=== PATIENT | female | born 1990 | race Two or more races ===

== ENCOUNTER 2022-07-25 14:33 | Emergency (ER) | payer OTHER ==
[~2022-07-25] VITALS: Ht 167.6 cm; Wt 70.3 kg
== END 2022-07-25 15:49 | disposition home or self-care (01) ==
LOC: ER 14:33
DX: S90.121A Contusion of right lesser toe(s) without damage to nail, initial encounter (principal); X58.XXXA Exposure to other specified factors, initial encounter; Y99.9 Unspecified external cause status; Z91.040 Latex allergy status

== ENCOUNTER 2023-03-04 09:09 | Emergency (ER) | payer OTHER ==
[~2023-03-04] VITALS: Ht 167.6 cm; Wt 70.8 kg
[2023-03-04] MEDS ORDERED: SOOLANTRA45 GM TP (09:40)
== END 2023-03-04 10:49 | disposition home or self-care (01) ==
LOC: ER 09:09
DX: H02.843 Edema of right eye, unspecified eyelid (principal); Z91.040 Latex allergy status

== ENCOUNTER 2024-10-16 14:45 | Emergency (ER) | payer OTHER ==
[~2024-10-16] VITALS: Ht 167.6 cm; Wt 75.3 kg
[~2024-10-16 14:45] MED LIST: SOOLANTRA45 GM TP
[2024-10-16] MEDS ORDERED: 0.9 % SODIUM CHLORIDE 1,000 ML IV SCH (17:30)
[2024-10-16 17:53] LABS: HEMOGLOBIN 11.3 g/dL (12.0-15.00); MEAN CELL VOLUME 89.9 fL (80.00-100.00); MEAN CORPUSCULAR HEMOGLOBIN 30.8 pg (27.00-32.0); MEAN CORPUSCULAR HGB CONC 34.3 g/dl (32.0-36.0); PLATELET COUNT 279 K/uL (150-450); RED BLOOD COUNT 3.68 M/uL (4.00-6.00); RED CELL DISTRIBUTION WIDTH 13.3 % (11.5-14.5)
[2024-10-16 18:14] LABS: PH,URINE 7.5 (5.0-8.0); URINE APPEARANCE Cloudy; URINE BILIRRUBIN Negative (NEGATIVE); URINE BLOOD Negative; URINE COLOR Yellow; URINE GLUCOSE Negative (NEGATIVE); URINE KETONE Negative (NEGATIVE); URINE LEUKOCYTE Large; URINE NITRATE Negative; URINE PROTEIN Negative (NEGATIVE); URINE UROBILINOGEN 0.2 E.U./dl
[2024-10-16 18:18] LABS: URINE BACTERIA 4159.1 uL (0.0-1933); URINE EPITHELIAL CELLS 30.5 uL (0.0-38.8); URINE RBC 2.9 uL (0.0-20.8); URINE WBC 116.9 uL (0.0-23.2)
[2024-10-16 18:32] LABS: URINE CAST 0.44 uL (0.0-1.40)
[2024-10-16 18:34] LABS: CALCIUM 8.6 mg/dL (8.5-10.1); CREATININE SERUM 0.53 mg/dL (0.55-1.02); GFR 133.68; POTASSIUM 3.86 mEq/L (3.5-5.1)
[2024-10-16] MEDS ORDERED: AMOX1TAB5 PO (19:58)
[2024-10-16] MEDS ORDERED: PEPCID AC20 MG PO (20:03)
== END 2024-10-16 20:48 | disposition home or self-care (01) ==
LOC: ER 14:46
PROVIDERS: General Practice
DX: O99.891 Other specified diseases and conditions complicating pregnancy (principal); Z3A.18 18 weeks gestation of pregnancy; Z91.040 Latex allergy status; Z20.822 Contact with and (suspected) exposure to COVID-19; R00.0 Tachycardia, unspecified
CPT/HCPCS: 36415; 96365; 96366; 99282; J7030

== ENCOUNTER 2025-03-01 15:28 | Inpatient (IN) | payer OTHER ==
[~2025-03-01] VITALS: Ht 167.6 cm; Wt 89.8 kg
[2025-03-01 14:55] VITALS: BP 166/78
[~2025-03-01 15:28] MED LIST changes: +AMOX1TAB5 PO; +PEPCID AC20 MG PO
[2025-03-01 15:30] VITALS: BP 120/67
[2025-03-01] MEDS ORDERED: RINGERS SOLUTION,LACTATED 1,000 ML IV SCH (15:45)
[2025-03-01 16:38] LABS: BASO % 0.4 % (0.1-1.2); EOS # 0.03 (0.04-0.54); EOS % 0.3 % (0.7-7.0); LYMPH # 0.81 (1.18-3.74); LYMPH % 7.2 % (19.3-53.1); MEAN PLATELET VOLUME 10.30 fl (9.4-12.4); MONO # 1.11 (0.24-0.82); MONO % 9.9 % (4.7-12.5); NEUT # 9.11 (1.56-6.13); NEUT % 81.1 % (34.0-71.1); RED CELL DISTRIBUTION WIDTH 13.0 % (11.6-14.4)
[2025-03-01 16:39] LABS: URINE APPEARANCE Clear; URINE BILIRRUBIN Negative (NEGATIVE); URINE BLOOD Negative; URINE COLOR Yellow; URINE GLUCOSE Negative (NEGATIVE); URINE KETONE Negative (NEGATIVE); URINE LEUKOCYTE Moderate; URINE NITRATE Negative; URINE PROTEIN Negative (NEGATIVE); URINE UROBILINOGEN 0.2 E.U./dl
[2025-03-01 16:43] LABS: URINE BACTERIA 2297.7 uL (0.0-1933); URINE EPITHELIAL CELLS 27.6 uL (0.0-38.8); URINE WBC 27.6 uL (0.0-23.2)
[2025-03-01 16:44] LABS: URINE CAST 0.73 uL (0.0-1.40); URINE RBC 0.8 uL (0.0-20.8)
[2025-03-01 16:55] LABS: COVID-19 AG NEGATIVE (NEGATIVE)
[2025-03-01 16:58] LABS: INR 0.97
[2025-03-01 17:02] LABS: ALT/SGPT 27.0 U/L (12-78); AST/SGOT 24.0 U/L (15-37); BILIRUBIN TOTAL 0.23 mg/dL (0.3-1.2); BUN CREA RATIO 11.0 (7.0-25.0); CREATININE SERUM 0.55 mg/dL (0.55-1.02); GFR 128.09; GLOBULINA 3.6 G/DL (2.4-3.5); GLUCOSE FASTING 69.0 mg/dL (65-100); OSMOLALITY SERUM 275.0 MOSM/KG (275-295)
[2025-03-01 17:30] VITALS: BP 120/67
[2025-03-01] MEDS ORDERED: AMPICILLIN SODIUM 2,000 MG VIAL IV ONE (18:00)
[2025-03-01 20:00] VITALS: BP 129/70
[2025-03-01] MEDS ORDERED: AMPICILLIN SODIUM 1,000 MG VIAL IV SCH (21:00)
[2025-03-01 23:17] VITALS: BP 125/74; O2SAT 100
[2025-03-02 03:02] VITALS: BP 106/62; O2SAT 98
[2025-03-02 07:25] VITALS: BP 108/65
[2025-03-02] MEDS ORDERED: MISOPROSTOL 25 MCG/4 ML GEL.W.APPL VAG ONE ×2 (09:30→13:15)
[2025-03-02 11:08] VITALS: BP 124/77
[2025-03-02] MEDS ORDERED: PRENATABS RX T1 EACH PO (12:35)
[2025-03-02 15:11] VITALS: BP 121/66
[2025-03-02] MEDS ORDERED: OXYTOCIN 500 ML IV SCH (17:45)
[2025-03-02 19:58] VITALS: BP 122/67
[2025-03-02 23:19] VITALS: BP 119/78
[2025-03-03] VITALS (8 sets, daily range): BP systolic 100–131; BP diastolic 62–77
[2025-03-03] MEDS ORDERED: MORPHINE SULFATE 4 MG/ML CARTRIDGE IV ONE (05:30)
[2025-03-03] MEDS ORDERED: CHLORHEXIDINE GLUCONATE 120 ML BOTTLE TOP ONE (08:00)
[2025-03-03] MEDS ORDERED: LIDOCAINE HCL 1% 10ML VIAL PERCUT ONE (08:15)
[2025-03-03] MEDS ORDERED: ERYTHROMYCIN BASE OPHT 1GM EACH TUBE OP ONE (08:15)
[2025-03-03] MEDS ORDERED: OXYTOCIN 1,000 ML IV SCH (08:15)
[2025-03-03] MEDS ORDERED: OXYTOCIN 500 ML IV SCH (08:15)
[2025-03-04] VITALS: BP 107/65
[2025-03-04 08:51] VITALS: BP 104/67
[2025-03-04 11:37] LABS: BASO % 0.3 % (0.1-1.2); EOS # 0.04 (0.04-0.54); EOS % 0.3 % (0.7-7.0); LYMPH # 1.80 (1.18-3.74); LYMPH % 12.7 % (19.3-53.1); MEAN PLATELET VOLUME 10.70 fl (9.4-12.4); MONO # 1.03 (0.24-0.82); MONO % 7.3 % (4.7-12.5); NEUT # 11.05 (1.56-6.13); NEUT % 78.0 % (34.0-71.1); RED CELL DISTRIBUTION WIDTH 13.1 % (11.6-14.4)
[2025-03-04 17:37] VITALS: BP 124/81
[2025-03-05 00:31] VITALS: BP 105/67
[2025-03-05 08:00] VITALS: BP 115/81
== END 2025-03-05 15:44 | disposition home or self-care (01) | DRG 807 ==
LOC: OBS/DEL 15:28 → LDR 18:09 → OBS/DEL 18:09 → OB/GYN 03-03 08:48
PROVIDERS: Obstetrics & Gynecology; ADMIT Specialist; ATTEND Specialist
PROC: 4A1HXCZ Monitoring of Products of Conception, Cardiac Rate, External Approach (ICD-10-PCS; 2025-03-01)
PROC: BY4FZZZ Ultrasonography of Third Trimester, Single Fetus (ICD-10-PCS; 2025-03-01)
PROC: 3E033VJ Introduction of Other Hormone into Peripheral Vein, Percutaneous Approach (ICD-10-PCS; 2025-03-02)
PROC: 3E0P7VZ Introduction of Hormone into Female Reproductive, Via Natural or Artificial Opening (ICD-10-PCS; 2025-03-02)
PROC: 10E0XZZ Delivery of Products of Conception, External Approach (ICD-10-PCS; principal; 2025-03-03)
PROC: 0KQM0ZZ Repair Perineum Muscle, Open Approach (ICD-10-PCS; 2025-03-03)
DX: O70.1 Second degree perineal laceration during delivery (principal); Z37.0 Single live birth; O99.824 Streptococcus B carrier state complicating childbirth; Z3A.38 38 weeks gestation of pregnancy